=== PATIENT | female | born 1940 | race Caucasian/White ===

== ENCOUNTER → 2016-08-04 | Outpatient (CLI) | payer OTHER | LOC: BHCLAF 10:30 | PROVIDERS: ATTEND Internal Medicine Cardiovascular Disease | DX: I48.91 Unspecified atrial fibrillation (principal); E78.5 Hyperlipidemia, unspecified; I10 Essential (primary) hypertension; Z79.899 Other long term (current) drug therapy | CPT/HCPCS: 93005-PO ==

== ENCOUNTER 2016-12-04 07:34 | Day surgery (SDC) | payer OTHER ==
[2016-12-04] MEDS ORDERED: DIAZEPAM 5 MG TAB PO ONE (07:36)
[2016-12-04] MEDS ORDERED: BACITRACIN IRRIGATION/NS 50,000 UNITS/1,000 ML BTL IRR ONE (07:36)
[2016-12-04] MEDS ORDERED: ceFAZolin 2 GM/DEXTROSE 100 ML IV ONE (07:36)
[2016-12-04] MEDS ORDERED: NS 1,000 ML IV ONE (07:36)
[2016-12-04] MEDS ORDERED: diphenhydrAMINE 25 MG CAP PO ONE (07:36)
--- NOTE | 2016-12-04 08:02 | CPEKG ---
Heart Rate: 76 RR Interval: 789 P-R Interval: 180 QRSD Interval: 120 QT Interval: 412 QTC Interval: 464 P [place]: 0 QRS [place]: -41 T Wave [place]: 22 EKG Severity - ABNORMAL ECG - EKG Impression: NSR WITH FAVB, iRBBB, LAFB EKG Impression: VENTRICULAR-PACED COMPLEXES EKG Impression: LEFT ATRIAL ABNORMALITY Electronically Signed By: Ja Nash 05-Dec-2016 16:26:24
[2016-12-04 08:18] LABS: % IMMATURE GRANULYOCYTES 0.4 % (0.0-1.1); ABSOLUTE IMMATURE GRANULOCYTES 0.02 10^3/uL (0.00-0.10); ADD DIFF? NO; ADD MORPH? NO; ADD SCAN? NO; ATYPICAL LYMPHOCYTE FLAG 10 (0-99); FRAGMENT RBC FLAG 0 (0-99); HEMATOCRIT 45.8 % (38.0-47.0); HEMOGLOBIN 15.7 g/dL (12.6-16.3); LEFT SHIFT FLG 0 (0-99); LIPEMIA HEMOLYSIS FLAG 90 (0-99); MEAN CELL HEMOGLOBIN CONCENTR. 34.3 g/dL (32.4-36.7); MEAN CELL VOLUME 93.3 fL (81.5-99.8); MEAN PLATELET VOLUME 10.3 fL (8.7-11.7); PLATELET CLUMPS FLAG 10 (0-99); PLATELET COUNT 180 10^3/uL (150-400); RED BLOOD CELL COUNT 4.91 10^6/uL (4.18-5.33); RED CELL DISTRIBUTION WIDTH 13.1 % (11.5-15.2)
[2016-12-04 08:26] LABS: INR 3.62 (0.83-1.16); PROTIME(PATIENT) 36.7 SEC (12.0-15.0)
[2016-12-04 08:40] LABS: ANION GAP 11 mEq/L (8-16); CALCIUM 9.4 mg/dL (8.5-10.4); CARBON DIOXIDE 21 mEq/l (22-31); CHLORIDE 106 mEq/L (97-110); GLOMERULAR FILTRATION RATE 54; GLUCOSE 132 mg/dL (70-100); POTASSIUM 4.2 mEq/L (3.5-5.2); SODIUM 138 mEq/L (134-144)
[2016-12-04] MEDS ORDERED: LIDOCAINE 1% 300 MG/30 ML SDV ONE (10:22)
[2016-12-04] MEDS ORDERED: BUPIVACAINE 0.5% 30 ML SDV ONE (10:23)
[2016-12-04] MEDS ORDERED: EPINEPHrine 1 MG/10 ML SYR IVP ONE (10:23)
[2016-12-04] MEDS ORDERED: LIDO/EPI 1% **for epidural** 30 ML SDV ONE (10:24)
--- NOTE | 2016-12-04 13:29 | CPEKG ---
Heart Rate: 69 RR Interval: 870 P-R Interval: 198 QRSD Interval: 124 QT Interval: 424 QTC Interval: 455 P [place]: 0 QRS [place]: -53 T Wave [place]: 18 EKG Severity - ABNORMAL ECG - EKG Impression: ATRIAL-PACED COMPLEXES EKG Impression: RBBB AND LAFB Electronically Signed By: Ja Nash 05-Dec-2016 16:21:18
--- NOTE | 2016-12-04 16:04 | CPIP ---
[f rep st] INVASIVE CARDIAC PROCEDURE DATE OF PROCEDURE: 12/04/2016 INDICATIONS: The patient is a 76-year-old female. She has a dual-chamber pacemaker given her histo ry of sick sinus syndrome. Her current device is at elective replacement indicators. PROCEDURE: Pacemaker generator change. TECHNIQUE: Following informed consent, in the fasting state the patient was brought to cardiac cath eterization laboratory. Antibiotics were administered prior to the procedure. The patient requeste d that no sedation be given. Left chest was prepped and draped in the usual sterile fashion. 2% li docaine was infiltrated into the skin overlying the existing device. A 3 cm incision was made using a #10 blade. Using blunt dissection, the capsule around the pacemaker was identified. This was op ened bluntly. The pacemaker was delivered from the pocket. The leads were disconnected and individ ually tested. Both leads demonstrated adequate capture and sensing. The pocket was inspected. All bleeders were cauterized. The pocket was irrigated with antibiotic-containing solution. 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 The device was then placed back in the pocket. The pocket was then insufflated with Jim AH absorbable hemostatic particles. The pocket was then closed in 3 layers, initially using 2 layers of interrupted suture with 2-0 and 3-0 Vicryl, and finally runnin g 4-0 Vicryl for the skin. Steri-Strips and a dry dressing were applied. COMPLICATIONS: None. DEVICE INFORMATION: The leads were implanted August 22, 2006. The atrial lead is a Medtronic 5076, 52 cm lead, serial number [id number]. The ventricular lead is a Medtronic 5076, 58 cm lead, serial number [id number]. In the atrium, sensed P waves were 5.8 mV with a capture threshold of 0.5 V at 0 .5 milliseconds with lead impedance of 485 ohms. The ventricle capture was 0.6 V at 0.4 millisecond s with a lead impedance of 564 ohms and sensed R waves of 6.9 mV. The newly implanted pacemaker is a Medtronic Advisa MRI-compatible device, model #A2DR01, serial #[id number]. DISPOSITION: The patient will be recovered in the CVC and discharged home later today. /[id number]/MODL
== END 2016-12-04 14:40 | disposition home or self-care (01) ==
LOC: FCATH 07:34
PROVIDERS: ATTEND Internal Medicine Cardiovascular Disease
PROC: 0JH606Z Insertion of Pacemaker, Dual Chamber into Chest Subcutaneous Tissue and Fascia, Open Approach (ICD-10-PCS; principal; 2016-12-04)
PROC: 0JPT0PZ Removal of Cardiac Rhythm Related Device from Trunk Subcutaneous Tissue and Fascia, Open Approach (ICD-10-PCS; principal; 2016-12-04)
DX: Z45.018 Encounter for adjustment and management of other part of cardiac pacemaker (principal); I48.0 Paroxysmal atrial fibrillation; E78.5 Hyperlipidemia, unspecified; I10 Essential (primary) hypertension; G47.33 Obstructive sleep apnea (adult) (pediatric)
CPT/HCPCS: C1785; J0690

== ENCOUNTER → 2017-07-27 | Outpatient (CLI) | payer OTHER | LOC: BHFA 09:30 | PROVIDERS: ATTEND Internal Medicine Cardiovascular Disease | DX: I48.91 Unspecified atrial fibrillation (principal); I49.5 Sick sinus syndrome | CPT/HCPCS: 78452; 93017; A9500; J2785 ==

== ENCOUNTER → 2017-10-26 | Outpatient (CLI) | payer OTHER | LOC: BHFA 11:00 | PROVIDERS: ATTEND Internal Medicine Cardiovascular Disease | DX: I48.91 Unspecified atrial fibrillation (principal) ==